=== PATIENT | female | born 1970 | race Caucasian/White ===

== ENCOUNTER → 2019-11-03 | Outpatient (CLI) | payer OTHER, SELFPAY ==
[2019-11-03 09:05] VITALS: BMI 31.8
[2019-11-09 15:12] LABS: HPV APTIMA, High Risk Negative (Negative)
== END | disposition home or self-care (01) ==
LOC: LABSPEC 13:53
PROVIDERS: PCP Family Medicine; Referring Provider Nurse Practitioner Women's Health; Visit Provider Nurse Practitioner Women's Health
DX: Z12.4 Encounter for screening for malignant neoplasm of cervix (principal)
CPT/HCPCS: 87624; 88175; G0145

== ENCOUNTER 2020-03-07 10:00 | Outpatient (RCR) | payer OTHER, SELFPAY ==
[2019-05-25 10:43] VITALS: BMI 31.8
--- NOTE | 2019-09-29 12:39 | HP.OTEVAL ---
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 Date of Evaluation: 09/29/19 Occupational Therapist: Lauren Guerra, OTR/Shelly, CHT - Subjective This 49 year old female was seen for OT eval with dx of a right complex tear of triangular fibrocartilage. pt states she had a fall about 5 years ago. MRI showed tears but was unable to get repiared at that time due to wc issues. pt states she underwent sx on July 19 2019. pt currently 10 weeks s/p from TFCC repair. pt states she had pins removed two weeks ago and is here for eval/tx ROM pt states she was instructed in removing orthosis that limited forearm supination a week ago friday and is now allowed to wean from wrist brace. Pt states is limited with all ADls and IADLS. 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 - ADLs Dressing: Bra, Button shirt, Pants Fasteners: Tie shoes, Buttons, Zippers, Belt Eating: Use silverware, Cut food, Drink from glass Bathing: Wash hair, Squeeze shampoo bottle Toileting: Manage clothing Grooming: Trim nails, Squeeze toothpaste on, [place] teeth - Pain Right wrist 2 Pain Intensity Range: 1, 5 - ROM Forearm: right pronation 20 supination 10 left WNL Wrist: right 30/15 left 55/50 - Strength Nuclear Physics Professor: right 20# left 55# Lateral Pinch: right 10# left 14# Tripod Pinch: right 8# left 12# Strength Comments: Right hematology technologist/pinch will be tested at later date - Sensation Sensation Comments: denies - Quick DASH-Disab of Arm,Shoulder& Hand Quick DASH Score: 73.3325 - Goals Goal:100% adherence to protocol: Yes Comment: TFCC repair protocol Goal:Daily scar massage when approriate: Yes Goal:ROM equal to unaffected hand: Yes Goal:Nuclear Physics Professor/Pinch strength at least 75% of unaffected hand: Yes Goal:No pain with affected hand use: Yes Goal:Full use of affected hand in daily activities including: Yes - Rehabilitation General Assessment: Pt currently 10 weeks s/p from TFCC repair with pinning. pins removed 1 week ago. pt demo with limited right wrist ROM limited forearm sup/pron and weak. pt limited with ADLs and IADls at this time and would benefit from skilled OT services 2x week for 8 weeks to assist pt in returning to her PLOF. Today therapist ed. pt on wrist and forearm ROM, scar mtg and edema contorl. pt demo understanding and agree to POC. Rehabilitation Potential: Good - Anticipated Interventions A/AAROM/PROM, Strengthening, Edema Control, Scar Care, Triggerpoint Release, Desensitization, Sensory Retraining, Modalities, Orthoses, Joint Protection/Energy Conservation, Ergonomic Education, Fine Motor Coord/Segundo, ADL Training, Education re assistive Equipment - Visit Plan Frequency: 2x /Week Duration: 2 Months TEXT: Thank you for the opportunity to evaluate your patient. For Medicare and Medicare HMO plans, please review the plan of care and approve it. It will need to be FAXED BACK to us at [phone] for Medicare purposes. Please let me know if there are questions or concerns regarding this plan of care. Physician Signature: Date:
--- NOTE | 2019-10-27 13:37 | OTREVAL_ITS ---
ELEANOR GARRISON, It has been my pleasure to treat CAROLINE CUNNINGHAM over the last 9 visits for right complex tear of TFCC with repair. Please see the progress note below for an update on the occupational therapy plan of care! Subjective: pt arrives states he is doing fine- feels like she is getting stronger but continues to struggle with ROM. this limits her IND with IADLs and ADLs. pt continues to have a popping sensation with ROM of forearm supination and pronation. Objective/Function: right wrist ROM 55/40. supination 45* with a pop when transition to pronation - please asses. right visual education director strength 30# Plan Frequency: 2x /Week Duration: 4 Weeks Plan: cont to work AROM. isometrics to limit popping with forearm supination/pronation Goals - Goals Patient Goals: Regain Mobility, Regain Strength, Improve Fine Motor Skills, Use Hand/Wrist/Arm Normally Again Goal:100% adherence to protocol: Yes Goal:Daily scar massage when approriate: Yes Goal:ROM equal to unaffected hand: Yes Goal:Dynamic Etching Processor/Pinch strength at least 75% of unaffected hand: Yes Goal:No pain with affected hand use: Yes Goal:Full use of affected hand in daily activities including: Yes Anticipated Interventions Anticipated Interventions: A/AAROM/PROM, Strengthening, Edema Control, Scar Care, Triggerpoint Release, Desensitization, Sensory Retraining, Modalities, Orthoses, Joint Protection/Energy Conservation, Ergonomic Education, Fine Motor Coord/Segundo, ADL Training, Education re assistive Equipment Please do not hesitate to contact me at [phone] by phone or if you have questions or concerns regarding this new plan of care! Sincerely, Lauren Guerra, OTR/L, CHT
--- NOTE | 2019-11-24 09:34 | HP.OTREVAL ---
ELEANOR GARRISON, It has been my pleasure to treat CAROLINE CUNNINGHAM over the last 4 visits for right complex tear of TFCC with repair. Please see the progress note below for an update on the occupational therapy plan of care! Subjective: pt arrives to session states some sorness througout wrist - less pop with forearm sup/pron. Objective/Function: right community relations specialist strength 40# left is 60#. right tripod pinch 14#. right lateral pinch 15#. right wrist ROM 60/40. UD 15. RD 20. pt making gains with strength and increasing use of her right hand with ADLs and IADLs pt would still benefit from skilled OT services to improve her functional strength Plan Frequency: 2x /Week Duration: 4 Weeks Plan: cont with PRE. gym eq. BTE. and isometric sup/pron Goals - Goals Patient Goals: Regain Mobility, Regain Strength, Improve Fine Motor Skills, Use Hand/Wrist/Arm Normally Again Goal:100% adherence to protocol: Yes Goal:Daily scar massage when approriate: Yes Goal:ROM equal to unaffected hand: Yes Goal:Furnace Cooler/Pinch strength at least 75% of unaffected hand: Yes Goal:No pain with affected hand use: Yes Goal:Full use of affected hand in daily activities including: Yes Anticipated Interventions Anticipated Interventions: A/AAROM/PROM, Strengthening, Edema Control, Scar Care, Triggerpoint Release, Desensitization, Sensory Retraining, Modalities, Orthoses, Joint Protection/Energy Conservation, Ergonomic Education, Fine Motor Coord/Segundo, ADL Training, Education re assistive Equipment Please do not hesitate to contact me at [phone] by phone or if you have questions or concerns regarding this new plan of care! Sincerely, Lauren Guerra, OTR/L, CHT
--- NOTE | 2020-02-08 11:12 | HP.OTREVAL ---
ELEANOR GARRISON, It has been my pleasure to treat CAROLINE CUNNINGHAM over the last 8 visits for right complex tear of TFCC with repair. Please see the progress note below for an update on the occupational therapy plan of care! Subjective: pt arrives to session with new C9 for continue therapy - pt states she has had difficulty with paper work and approval notification - pt states she continues to have pain- states she had cortisone shot in left wrist 2019. pt states advised with wear wrist brace. pt states she has been removing wrist brace to shower only. Objective/Function: R self storage manager strength 40#. R tripod 10#. R Lat 8#. no change since Nov. R wrist ROM 35/50 this is a decrease in ROM from 36/60. right wrist RD 25 UD 25 WNL. pt continues to have a pop with forearm supination- Will return to for italia dunaway to repair will know Feb.21 Plan Frequency: 2x /Week Duration: 4 Weeks Plan: therapist will challenged pt with wrist stabilization ex. will initiate PRE on gym eq. (mid row, lat pull down, chest press and shoulder press) to increase pts functional strength- strengthen in pain free or limited wrist ROM as pt tolerates. If pt has increase in pain POC will change. Goals - Goals Patient Goals: Regain Mobility, Regain Strength, Improve Fine Motor Skills, Use Hand/Wrist/Arm Normally Again Goal:100% adherence to protocol: Yes Goal:Daily scar massage when approriate: Yes Goal:ROM equal to unaffected hand: Yes Goal:Community Living Specialist/Pinch strength at least 75% of unaffected hand: Yes Goal:No pain with affected hand use: Yes Goal:Full use of affected hand in daily activities including: Yes Anticipated Interventions Anticipated Interventions: A/AAROM/PROM, Strengthening, Edema Control, Scar Care, Triggerpoint Release, Desensitization, Sensory Retraining, Modalities, Orthoses, Joint Protection/Energy Conservation, Ergonomic Education, Fine Motor Coord/Segundo, ADL Training, Education re assistive Equipment Please do not hesitate to contact me at [phone] by phone or if you have questions or concerns regarding this new plan of care! Sincerely, Lauren Guerra, OTR/L, CHT
--- NOTE | 2020-03-07 10:30 | HP.OTDCSUM_ITS ---
It has been my pleasure to treat CAROLINE CUNNINGHAM under orders from ELEANOR GARRISON, for the diagnosis of right complex tear of TFCC with repair for a total of 8 visit(s). Please see the following information for a summary of their discharge status. % Improvement: 60 Objective/Function: R registered nurse first assistant strength 40#. R tripod 10#. R Lat 8#. no change since Nov. R wrist ROM 60/45. right forearm sup 65 with discomfort. right wrist RD20 (with discomfort) UD 20 WFL. pt continues to have a pop with forearm supination- Will have sx on . pt to cont with HEP until she has her sx. ice/heat PRN Patient Goals: Regain Mobility, Regain Strength, Improve Fine Motor Skills, Use Hand/Wrist/Arm Normally Again Goal:100% adherence to protocol: Yes Goal:Daily scar massage when approriate: Yes Goal:ROM equal to unaffected hand: Yes Goal:Marine Engine Machinist Apprentice/Pinch strength at least 75% of unaffected hand: Yes Goal:No pain with affected hand use: Yes Goal:Full use of affected hand in daily activities including: Yes Plan: D/C with HEP Discharge Comments: pt d/C with sx scheduled . If there are questions or concerns regarding this patient's occupational therapy, please fell free to call me at [phone]. Thank you for the referral of this patient. Sincerely, Lauren Guerra, OTR/L, CHT
== END 2020-03-07 10:36 | disposition home or self-care (01) ==
LOC: OT 10:00
PROVIDERS: PCP Family Medicine
DX: S63.591D Other specified sprain of right wrist, subsequent encounter (principal)
CPT/HCPCS: 97035; 97110; 97140; 97166; 97530

== ENCOUNTER 2021-05-23 08:30 | Outpatient (RCR) | payer OTHER, SELFPAY ==
--- NOTE | 2021-02-23 08:44 | HP.OTEVAL_ITS ---
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 Date of Evaluation: 02/21/21 Occupational Therapist: Lauren Guerra, OTR/Shelly, CHT - Subjective This 50 year old female was seen for OT eval dx of Ulnar neuropathy at elbow -. pt underwent further wrist TFCC in 2020 and August 2020 for right elbow ulnar nerve transposition. pt has been through acute OT services and arrives to this facility for work conditioning right wrist/hand 3-4x week for 4 weeks to return pt to her PLOF. pt states she had lifting restrictions increased from 5# to 10#. pt states she is currently unemployed and when looking for jobs a min. requirement is about 50#. This therapist called Dr. Martínez's office and clarified any restrictions - NO Restrictions with work conditioning - Pain right wrist 1 Pain Intensity Range: 6, 7 - ROM Elbow: right/Left WNL Forearm: supination right 55 left 70 pronation r/l WNL Wrist: right 55/50 left 60/60 ROM Comments: right RD 10 RD 15. left UD 20 UD 15 - Strength Shoulder: right 4/5 left 4+/5 Elbow: right 4/5 left 4+/5 Forearm: right 4/5 left 4+/5 Wrist: right 4/5 left 4+/5 World Language Teacher: right 45# left 45# Lateral Pinch: right 10# left 12# Tripod Pinch: right 10# left 10# Tip-to-Tip Pinch: right 6# left 4# Strength Comments: pt demo with UB weakness of wrist/hand - Sensation Thumb: right 2.83 left 2.83 Index: right 2.83 left 2.83 Middle: right 2.83 left 2.83 Ring: right 2.83 left 2.83 Little: right 2.83 left 2.83 - Quick DASH-Disab of Arm,Shoulder& Hand Quick DASH Score: 47.7250 - Goals Goal:: pt will demo increase in right UE wrist/forearm MMT 5/5 to increase pts ind. with ADLs and IADLs by d/c. pt will demo a increase in right lighting engineering technician by 20# and lateral and tripod pinch by 4# to increase pts ind. with ADLs and IADLs by d/c. pt will demo the ability to lift from floor, knee and waist level with good lifting mechanics 95% of the time with wt over 25#. Goal:: pt will report no pain greater than1/10 with use of right UE with ADLs and IADls by d/c Goal:: pt will demo understanding of scar mtg by end of 3rd session to prevent scar adhesions by d.c - Rehabilitation General Assessment: pt demo with UE weakness and pain limiting her return to ADLs and work tasks. pt would benefit from skilled OT services for work conditioning 3-4x week for 4 weeks to increase pts strength/endurance to return to her PLOF. Rehabilitation Potential: Good - Anticipated Interventions Strengthening, Ergonomic Education, Education re Diagnosis, Other Other Interventions: work conditioning - Visit Plan Frequency: 3-4x week Duration: 4 Weeks General Plan: work conditioning. simulated work tasks. lift up to 50#. gym eq. wrist stabilization ex. TEXT: Thank you for the opportunity to evaluate your patient. For Medicare and Medicare HMO plans, please review the plan of care and approve it. It will need to be FAXED BACK to us at [phone] for Medicare purposes. Please let me know if there are questions or concerns regarding this plan of care. Physician Signature: Date:
--- NOTE | 2021-03-19 11:51 | HP.OTREVAL ---
ELEANOR GARRISON, It has been my pleasure to treat CAROLINE CUNNINGHAM over the last 12 visits for ulnar neuropathy at elbow of right UE. Please see the progress note below for an update on the occupational therapy plan of care! Subjective: pt states she continues to have difficulty with lifting heavy weights- with her prior to injury ex routine- due to pain-. pt states she can do most daily tasks but-pt states she still struggles with the ability to open jars, and opening packages (pain limits pts). pt continues to not be able to return to her leisure activities, as swimming, croquet, cheerleading coach tennis, foosball and other activities since her surgeries. 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 Objective/Function: pt has been engaged in work conditioning for 12 sessions for right UE/wrist- consistently for last 4 weeks. pts tolerated increase in wts and sets with ADls. right trackless trolley driver strength 60# increase from 45#. right lateral pinch 14# increase from 10#. right tripod pinch 10# no change. right tip pinch 8# increase from 6#. right wrist 60/ 50. right forearm supination 70* increase from 55*. RD 10. UD 20. pt demo functional ROM - pt continues to have some pain in wrist depending on position of forearm/wrist and resistance. pt tolerated work conditioning well- some of the exercise included. shoulder IR/ER at 5# resistance. Biceps curls at 15# resistance. triceps at 25# on mateo with straight bar. lat pull down 40# resistance. mid row 40# resistance. chest press at 37.5# resistance. shoulder press 36# res of resistance. wrist curls with 3# resistance. therapy also use BTE ([employer] equipment) machine with different attachments of trackless trolley driver/ pinch tool 162, simulated jar lid open tool 302, tool 504 for wrist flex/ext. along with supination/pronation with tool 602-. pt has handout on reps of wts- from our gym. pt did perform cardio exercises ind. in our building- with distant supervision. pt did put good effort into her exercises and if her wrist was bothersome we would change hand/wrist/forearm positioning for pt to be successful with the exercises. pt currently is unemployed and we did not have wt. lifting requirement-. pt did simulated lifting with 25# from different heights- with good lifting mechanics. simulated work task as sled push/pull 45# and 35#. this was performed as simulated moving gurney- simulated placing a number of wts 2#, 3# 5# and 6# from different heights. - use of 2.2 weighted ball for supination/pronation to gain increase in functional strength to return to her PLOF or obtain employment. Plan Visits in this POC: pt returns to DR. Chang apporval date for work conditioning 03/19/21 Plan: pt returns to 03/20/21 for follow up after completing work conditioning. Goals - Goals Patient Goals: Regain Strength, Use Hand/Wrist/Arm Normally Again Goal:: pt will demo increase in right UE wrist/forearm MMT 5/5 to increase pts ind. with ADLs and IADLs by d/c. pt will demo a increase in right trackless trolley driver by 20# and lateral and tripod pinch by 4# to increase pts ind. with ADLs and IADLs by d/c. pt will demo the ability to lift from floor, knee and waist level with good lifting mechanics 95% of the time with wt over 25#. Goal:: pt will report no pain greater than1/10 with use of right UE with ADLs and IADls by d/c Goal:: pt will demo understanding of scar mtg by end of 3rd session to prevent scar adhesions by d.c Anticipated Interventions Anticipated Interventions: Strengthening, Ergonomic Education, Education re Diagnosis, Other Other Interventions: work conditioning Please do not hesitate to contact me at [phone] by phone or if you have questions or concerns regarding this new plan of care! Sincerely, Lauren Guerra, OTR/L, CHT
--- NOTE | 2021-05-25 08:26 | HP.OTFCE_ITS ---
Floor (Occasional 1-33% of Day): 40 lbs Floor (Frequent 34-66% of Day): 20 lbs Floor (Constant 67-100% of Day): NA Floor PDL: Light-Medium Knee (Occasional 1-33% of Day): 40 lbs Knee (Frequent 34-66% of Day): 20 lbs Knee (Constant 67-100% of Day): NA Knee PDL: Light-Medium Waist (Occasional 1-33% of Day): 20 lbs Waist (Frequent 34-66% of Day): 10 lbs Waist (Constant 67-100% of Day): NA Waist PDL: Light Shoulder (Occasional 1-33% of Day): 10 Shoulder (Frequent 34-66% of Day): 5 Shoulder (Constant 67-100% of Day): NA Shoulder PDL: Sedentary Overhead (Occasional 1-33% of Day): NA Overhead (Frequent 34-66% of Day): NA Overhead (Constant 67-100% of Day): NA Overhead PDL: No Ability Bending: Frequent Ability (34-66% of day) Comments: Pt. took a standing break after 10 reps regular pace Squatting: Occasional Ability (1-33% of day) Comments: Both knees popped during 3x, 10x, 10x F Kneeling: Occasional Ability (1-33% of day) Comments: Used distal support for 3x,10x,&10xF. B knees & B ankles popped pain incr Reaching out: Frequent Ability (34-66% of day) Comments: No difficulty Reaching up: Frequent Ability (34-66% of day) Comments: B shoulders popped Sitting: Frequent Ability (34-66% of day) Comments: no c/o pain with sitting for 30 minutes. Walking: Frequent Ability (34-66% of day) Comments: No c/o pain with walking during 6MWT Standing: Frequent Ability (34-66% of day) Comments: No c/o pain with standing 30 min Duration Sedentary Sedentary Light Light Light Medium Medium Medium Heavy Very Heavy Heavy Occasional (0-33% of day) Frequent (34-66% of day) Constant (67-100% of day) 10 # Negligible Negligible 15 # 8 # Negligible 20 # 10# Negli. 35 # 18 # 7 # 50 # 25 # 10 # 75 # 100 # >100 # 38 # 50 # >50 # 15 # 20 # >20 # Weight:: 88.859 kg Hand Dominance: Right hand dominant BP (Medication Use/Usual Values per pt report): Pt. reports she does not take meds for her R UE. Medical History Including Restrictions: Pt. has a history of ulnar neuropathy at elbow. Surgical history of right elbow ulnar nerve release. She had a wrist TFCC in 2020 and August 2020 for right elbow ulnar nerve transposition. She has had acute OT services through [facility] and at [facility]. She is currently participating in OT services for work conditioning for her right wrist/hand. Dr. Martínez's office reported that she has NO Restrictions with work conditioning. Per pt. report she has had 3 surgeries at her right wrist and 1 surgery at her right elbow (August 2020). Diagnoses: Per therapy order: Arthritis of right wrist. Ulnar neuropathy at elbow. wrist TFCC in 2020 and August 2020 for right elbow ulnar nerve transposition. Symptoms: Pt. has increased pain in R wrist with activity use during IADL's. Pt. reported that heat assists with decreasing and relieving pain in wrist. Pain: Pt. reported no pain (0/10) at start of FCE. Pt. reported that heat assists with decreasing and relieving pain in wrist. At end of FCE pt. reported pain level 2/10. Per the Reed pain assessment: 63/78, this indicates that the pt. is having greater perceived pain than most. Subcategory scores are: ? Sensory Score = 35 points. ? Affective Score = 11 points. ? Evaluative Score = 4 points. ? Miscellaneous Score = 13 points. ? Pain Rating Index (BRIANA) = 63 points. ? Present Pain Intensity (PPI) = 2 points. ? Pain Score Interpretation: The higher the score, the greater the perceived pain. 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 Activities performed at work include: EKGs, blood draws, computer work, answering phones, stocking pt. rooms. She reports job demands of: sitting 15 min max, changes positions frequently between sitting and standing, standing position max time 10-15 minutes, the heaviest weight she is required to lift is 100#. Behavioral: Pt. stated she was feeling nervous about test at start of FCE, tearful. Resolved herself within 5 minutes. Pt. put forth good effort during FCE. She was pleasant and cooperative. ADLS: Pt. reporting that she is independent with basic ADL's. 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 She reports difficulty with pushing a grocery cart when grocery shopping, difficulty with meal preparation, and driving. Pt. reporting that she compensates by using a pillow for her RUE when driving. Physical Examination: At start of FCE BP 161/109, HR 72, O2 98% at end of FCE BP 138/89, HR 68, O2 97%. Pt. has good posture with sitting and standing. The purpose of this FCE on 05-23-[address] Martínez. This exam will assess pt's physical abilities. ROM: Bilateral upper extremities have normal active range of motion (ROM). Pt. is limited on her right wrist flexion. Right wrist has 30 degrees of flexion. Her Left wrist has 60 degrees of flexion. Bilateral lower extremities have normal range of motion, no observed deficits. Strength: Using the Mini FET to assess L shoulder strength 16#, bicep flexion 16.2#. Through clinical observation R shoulder/bicep strength WFL, was not measured by mini FET secondary to having increased pain from unilateral carrying task. R hip flexion 29.7#, R hamstrings 15.5#, L hip flexion 28.6#, L hamstrings 26.1# Right Customer Quality Specialist Strength Average: 47.70 Right Customer Quality Specialist Strength Percentile: 68th percentile Left Customer Quality Specialist Strength Average: 62.20 Left Customer Quality Specialist Strength Percentile: 75th percentile Right Lateral Pinch Average: 11.33 Right Lateral Pinch Percentile: below 10th percentile Left Lateral Pinch Average: 14.00 Left Lateral Pinch Percentile: 10th percentile Right Tripod Pinch Average: 12.33 Right Tripod Pinch Percentile: below 10th percentile Left Tripod Pinch Average: 11.66 Left Tripod Pinch Percentile: below 10th percentile Comments: 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 See above chart. Sensation: Patient reported no deficits with sensation in hands or fingers. No numbness or tingling. Fine Motor: Fine motor was assess using the 9-hole peg test. With her right hand she completed in 25.50 seconds (below 10th percentile) and with her left hand she scored 21.71 seconds (within 50th percentile). Balance: Balance assessed by Forward reach test (FRT) and single leg stance. During the FRT 1st trial 13 inches, 2nd trial 13 inches, 3rd trial 13.25 inches. A score of 6 inches or less indicates a high fall risk. Single leg stance (hands on hips) RLE 1 minute & 26 seconds, LLE 1 minute & 20 seconds. No pain, ankles are sore Bending: Pt. completed bending and touching the ground 3 times, then 10 times with a rest break at the end, and then 10 times fast. pt can bend forward on frequent ability Squatting: Pt. completed squatting 3 times (3x), during squat her right knee popped, during 10 times (10x) her left knee popped, during the 10 times fast (10xF) her right knee popped. pt can bend forward on occasional ability Kneeling: Pt. completed kneeling with 1 knee, during the 3 times she alternated by knees to the ground and used distal support, at end her left knee popped, during the 10 times she had both ankles popped, used distal support of table, at the end of task both knees were painful and she rated them at a pain level 1. Pt. completed kneeling 10 times fast with distal support, pain level is a 2 in both knees. pt can kneel on a occasional ability Reaching out/up: While standing pt. was able to reach out 3 times, 10 times and 10 times fast without difficulty. While standing pt. was able to reach up 3 times, 10 times and 10 times fast without difficulty. pt can reach out/up on a frequent ability Walking: Walking assessed by Timed up and go (TUG) assessment. From a seated position, individual stands, walks 3m, turns 180?, walks 3m back to chair and sits down with back resting against backrest. TUG results 1st trial- 9 seconds,2nd trial- 8.50 seconds, and 3rd trial 8.41 seconds. Less than 10 seconds is within normal limits. Standing: Pt. tolerated standing 20-30 minutes without distal support. No distress by pt. Pt can stand on a frequent ability Sitting: Pt. tolerated sitting in chair for 20-30 minutes at a time without having to readjust for comfort once positioned. pt can sit on a frequent ability Climbing Stairs: Assessed stair climbing using the Step evaluation of performance on stairs (STEPS). There were 12 steps and bilateral hand rails. Pt. used handrail on Left side ascending the stairs and then used both handrails descending the stairs. Pt. had a faster pace going up, step over step than she did descending step over step. Pt. scored an 8/10 for ascending stairs. Pt. scored a 5/10 descending stairs. Floor Lift: Pt. demonstrated ability to lift 40#box from floor to knee height using bilateral hands, using correct body mechanics. Knee Lift: Pt. demonstrated ability to lift 40#box from knee height to waist level using bilateral hands using correct body mechanics. Waist Lift: Pt. demonstrated ability to lift 20# box from waist level to shoulder level using bilateral hands using correct body mechanics. Pt. stating she had pain going through ulnar side of wrist. Shoulder Lift: Pt. demonstrated ability to lift 10# box from waist level shoulder height using bilateral hands using correct body mechanics. This appeared to be difficult. Overhead Lift: Did not assess secondary to difficulty with wrist flexion and increasing pain through R wrist. Carrying: Pt. demonstrated ability to carry 20# bilaterally 50 feet, then carried 10# unilaterally 50 feet with R hand. At the end of unilateral carrying pt. had increased wrist pain to level 2/10. S/OT provided moist heat. Comments: Pt. 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 She was in the ER when the injury occurred and was immediately seen by medical research tech, her supervisor assembly and 2 nurses observed fall. Doctor seen pt. she had an xray. Since nothing was broken, pt. returned to work, 4 years later an orthopedic doctor told her she had torn ligaments and tendons, and then had her first surgery 5 years after injury. Pt. had an MRI and xrays. Through observations pt. had increased difficulty the higher up the pt. had to lift. Pt. requested to complete unilateral carrying with 10# against S/OT suggestion. Pt. had increased pain (2/10) when finished and S/OT provided moist heat to R wrist/hand and positioned on tabletop for comfort. Assessment was directly supervised and doc. reviewed and approved by Lauren LEIVA/Shelyl,MICHIT
--- NOTE | 2021-05-25 08:26 | HP.OTFCE.D ---
FCE D/C Summary - Discharge CAROLINE CUNNINGHAM was seen for a one time visit for an FCE on 05/23/21 and is discharged.
== END 2021-05-23 19:00 | disposition home or self-care (01) ==
LOC: OT 08:30
PROVIDERS: PCP Family Medicine
DX: M19.031 Primary osteoarthritis, right wrist (principal); G56.21 Lesion of ulnar nerve, right upper limb
CPT/HCPCS: 97110; 97140; 97166; 97168; 97537; 97750

== ENCOUNTER → 2021-11-07 | Outpatient (CLI) | payer OTHER, SELFPAY | END | disposition home or self-care (01) | PROVIDERS: PCP Family Medicine; Visit Provider Nurse Practitioner Women's Health | DX: N39.0 Urinary tract infection, site not specified (principal) | CPT/HCPCS: 87086; 87088; 87186 ==

== ENCOUNTER → 2021-11-19 | Outpatient (CLI) | payer OTHER, SELFPAY ==
--- NOTE | 2021-11-19 | EMB_PTH ---
PATIENT: CAROLINE CUNNINGHAM LOC: [facility] U#:[id number] AGE/SX: 51/F ROOM: RE11/19/[address]: CHI Thompson : 1970 BED: DIS: 11/19/2021 SPEC #: [id number] RECD: 11/20/21 08:34 STATUS: JASSI LANRE #: [id number] AMANDEEP: 11/19/21 00:[address]: Elba Daley NP DEPT: SURGICAL PATHOLOGY RECD BY: Luigi Shaw ENTERED: 11/20/21 08:34 SP TYPE: ENDOM BX/C KEDAR DR: Dr. Gino Pineda MD Tissues: Endometrium, NOS Procedures: Surgery Specimen Level IV HEADER OPERATION: Endometrial biopsy PRE-OP DIAGNOSIS: Abnormal uterine bleeding TISSUE SUBMITTED: Endometrial lining MICROSCOPIC DIAGNOSIS Endometrial biopsy: Mildly disordered proliferative endometrium. SJ:dieter 11/21/2021 MICROSCOPIC DESCRIPTION Slides are reviewed. GROSS DESCRIPTION Received is one container labeled with the patient's name and not further designated. The specimen consists of multiple irregular fragments of pink soft tissue that in aggregate measure 3 x 1.5 x 0.2 cm. The specimen is totally submitted in one cassette. / SJ:dieter 11/20/2021 TC:3 CPT: 80971
== END | disposition home or self-care (01) ==
LOC: LABSPEC 15:33
PROVIDERS: PCP Family Medicine; Referring Provider Nurse Practitioner Women's Health; Visit Provider Nurse Practitioner Women's Health
DX: N93.9 Abnormal uterine and vaginal bleeding, unspecified (principal)
CPT/HCPCS: 88305

== ENCOUNTER 2023-01-07 14:00 | Outpatient (RCR) | payer OTHER, SELFPAY ==
--- NOTE | 2022-07-31 07:29 | HP.OTEVAL_ITS ---
Patient's Visit Information CAROLINE CUNNINGHAM is a 52 year old F, referred to Occupational Therapy by ELEANOR GARRISON, with a diagnosis of left SL tear. Date of Evaluation: 07/29/22 Occupational Therapist: Lauren Guerra, CALI/Shelly, CHT - Subjective This 52 year old female was seen for OT eval with dx of tear of scapholunate ligament DOI 06/04/2014. DOS April 29 2022. pt arrives s/p 13 weeks from left scapholunate reconstruction using extensor carpi radialis longus, with left wrist arthroscopy TFCC debridement. pt states she is doing fine. Has HEP of dart throwers motion, scar mtg and increase use as tolerated. pt states ROM is limited as well as her strength but she is ready to continue therapy to return to a PLOF without pain. - Pain left wrist 6 Pain Intensity Range: 6 - ROM Forearm: right supination 60 left 65 Wrist: right 65/65 left 40/30 ROM Comments: left UD 15 RD 10. 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 pt demo with limited left wrist ROM and weakness limiting pt with ADls and IADLs. pt states pain limits her with all ADLs and IADLs. pt would benefit from skilled OT services 2x week for 8 weeks to increase pts ROM, wrist mobility and strength to return to her PLOF without pain. Pt demo understanding and agree to POC. Rehabilitation Potential: Good - Anticipated Interventions A/AAROM/PROM, Strengthening, Edema Control, Scar Care, Triggerpoint Release, Desensitization, Modalities, Orthoses, Joint Protection/Energy Conservation, Ergonomic Education, Education re assistive Equipment, Education re Diagnosis - Visit Plan Frequency: 2x /Week Duration: 2 Months TEXT: Thank you for the opportunity to evaluate your patient. For Medicare and Medicare HMO plans, please review the plan of care and approve it. It will need to be FAXED BACK to us at [phone] for Medicare purposes. Please let me know if there are questions or concerns regarding this plan of care. Physician Signature: Date:
--- NOTE | 2022-09-30 08:59 | OTREVAL_ITS ---
Re-Evaluation Intro: ELEANOR GARRISON, It has been my pleasure to treat CAROLINE CUNNINGHAM over the last 16 visits for left SL tear. Please see the progress note below for an update on the occupational therapy plan of care! Subjective Subjective: Pt arrives 20 weeks 5 day from left scapholunate reconstruction using ECRL with left wrist arthroscopy TFCC debridement. Pt main concern in the continued pain at the base of her right thumb. Pt continues to have pain up to 6/10 depending on what activities she is performing. Pt would like to return back to work in a capacity similar to what she was prior to surgery. Objective Objective/Function: Initial Analysis Director strength right 55# left 30# Current Right 50# Left 55# initial Lateral Strength right 14# left 12# Current R 18# L15# initial Tripod Strength right 14# left 12# Current R17# L 12# initial Wrist ROM left 40/30 current right 65/65 left 45/41 Plan Plan Frequency: 2x /Week Duration: 2 Months Visits in this POC: 2 months (2x week) Plan: Pt arrives 20 weeks 5 day from left scapholunate reconstruction using ECRL with left wrist arthroscopy TFCC debridement. Pt has been seen for 16 visits of skilled occupational therapy. These interventions included bilateral shoulder and hand strengthening, ergonomic techniques, modalities, and trigger point interventions. Pt main concern in the continued pain at the base of her right thumb when performing functional tasks ~20% of the time. Pt continues to have pain up to 6/10 depending on what activities she is performing. Pt would like to return back to work in a capacity similar to what she was prior to surgery. Pt verbalizes understanding of techniques. Pt may benefit from further skilled OT sessions. Goals Goals Patient Goals: Regain Mobility, Improve Fine Motor Skills, Use Hand/Wrist/Arm Normally Again and Be More Independent in ADLS Goal:100% adherence to protocol: Yes Goal:ROM equal to unaffected hand: Yes Goal:Analysis Director/Pinch strength at least 75% of unaffected hand: Yes Goal:No pain with affected hand use: Yes Goal:Full use of affected hand in daily activities including work: Yes Anticipated Interventions Anticipated Interventions Anticipated Interventions: A/AAROM/PROM, Strengthening, Edema Control, Scar Care, Triggerpoint Release, Desensitization, Modalities, Orthoses, Joint Protection/Energy Conservation, Ergonomic Education, Education re assistive Equipment and Education re Diagnosis Re-Evaluation Ending Re-evaluation ending: Please do not hesitate to contact me at [phone] by phone or Fax: if you have questions or concerns regarding this new plan of care! Sincerely, Lauren Guerra, OTR/L, CHT
--- NOTE | 2023-01-14 10:16 | HP.FCE ---
Task Lift Floor (Occasional 1-33% of Day): 30# Floor (Frequent 34-66% of Day): 15# Floor (Constant 67-100% of Day): NA Floor PDL: Light Knee (Occasional 1-33% of Day): 30# Knee (Frequent 34-66% of Day): 15# Knee (Constant 67-100% of Day): NA Knee PDL: Light Waist (Occasional 1-33% of Day): 20# Waist (Frequent 34-66% of Day): 10# Waist (Constant 67-100% of Day): NA Waist PDL: Light Shoulder (Occasional 1-33% of Day): 15# Shoulder (Frequent 34-66% of Day): 8# Shoulder (Constant 67-100% of Day): NA Shoulder PDL: Sedentary-Light Overhead (Occasional 1-33% of Day): 10# Overhead (Frequent 34-66% of Day): NA Overhead (Constant 67-100% of Day): NA Overhead PDL: Sedentary Comments: Physical Demand level of Light for lifting at floor- knee- and waist levels Physical Demand level of Sedentary Light for lifting at shoulder level Physical Demand level of Sedentary for lifting at overhead levels. due to left wrist pain pt can not lift on constant ability . pt reports pain present during all lifting tasks. Work Activity/Posture Bending: Frequent Ability (34-66% of day) Squatting: Frequent Ability (34-66% of day) Kneeling: Occasional Ability (1-33% of day) Reaching out: Constant Ability (67-100% of day) Reaching up: Frequent Ability (34-66% of day) Sitting: Frequent Ability (34-66% of day) Walking: Frequent Ability (34-66% of day) Standing: Frequent Ability (34-66% of day) Reference Reference: Duration Sedentary Sedentary Light Light Light Medium Medium Medium Heavy Very Heavy Heavy Occasional (0-33% of day) Frequent (34-66% of day) Constant (67-100% of day) 10 # Negligible Negligible 15 # 8 # Negligible 20 # 10# Negli. 35 # 18 # 7 # 50 # 25 # 10 # 75 # 100 # >100 # 38 # 50 # >50 # 15 # 20 # >20 # Patient Information Height: 1.65 m Weight:: 88 kg Hand Dominance: right Medical History Medical History Including Restrictions: Pt. has a history of ulnar neuropathy at elbow. Surgical history of right elbow ulnar nerve release. She had a wrist TFCC in 2020 and August 2020 for right elbow ulnar nerve transposition. She has had acute OT services through [facility] and at [facility]. She is currently participating in OT services for work conditioning for her right wrist/hand. Dr. Martínez's office reported that she has NO Restrictions with work conditioning. Per pt. report she has had 3 surgeries at her right wrist and 1 surgery at her right elbow (August 2020). 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 after injury MRI July 2014- MRI was not put on workman's comp claim. So pt struggled for years with pain and weakness until MRI was place in WC claim showing tear of TFCC tear. On April 29 2022 pt underwent Scapholunate reconstruction using Extensor Carpi radialis longus- left wrist arthroscopy of TFCC debridement. due to injury at work on 07/04/14. pt underwent OT services to improve ROM strength and use of left UE with ADLs and IADLs. pt states she does wear her neoprene brace to help decrease pain with daily tasks ie cleaning-laundry. pt states she continues to sleep in orthosis brace to protect her wrist at night. States this helps decrease her fear of hurting her wrist during the night. 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 pt states with use of UE with cleaning/scrubbing causes pain 3/10 pt states she will use a left wrist brace at night and during the day with heavier ADLS. 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 Activities performed at work include: EKGs, blood draws, computer work, answering phones, stocking pt. rooms. She reports job demands of: sitting 15 min max, changes positions frequently between sitting and standing, standing position max time 10-15 minutes, the heaviest weight she is required to lift is 100#.pt is unable to work as EMS at this time or ER. Behavioral Behavioral: pt cooperative throughout assessment. ADLS ADLS: Pt. reporting that she is independent with basic ADL's. ( bathing and dressing) She reports that she has difficulty with IADL tasks such as home management Cleaning, sweeping, and Laundry - She reports difficulty with pushing a grocery cart when grocery shopping, difficulty with meal preparation ( cutting, pealing) and driving. pt states even clapping her hands increases pain in wrist. pt states she is managing her symptoms with heat and limits heavy daily tasks. Physical Examination Physical Examination: heart rate 73 ROM: wrist ROM right 55/60 left 40/35 forearm supination right 60 left 65 pt demo all other ROM is WNL Strength: fet2 peak force shoulder flexion right 16# left 14.6# shoulder extension right 29# left 26.3# Biceps right 29# left 29# Triceps right 25# left 23# with left wrist pain Hip flexion right 35# left 29# Quadriceps right 26# 32# Hamstrings right 29# left 33# Right C Java Developer Strength Average: 45.00 Right C Java Developer Strength Percentile: 5% Left C Java Developer Strength Average: 25.00 Left C Java Developer Strength Percentile: .2% Right Lateral Pinch Average: 18.00 Right Lateral Pinch Percentile: >90% Left Lateral Pinch Average: 13.66 Left Lateral Pinch Percentile: 50% Right Tripod Pinch Average: 12.66 Right Tripod Pinch Percentile: 50% Left Tripod Pinch Average: 12.00 Left Tripod Pinch Percentile: 50% Sensation: denies Fine Motor: 9 hole peg testing right 19.56 seconds placing pt at 50% for age Left 17.73 seconds placing pt at 50% for age Balance: functional reach 12.5 normal balance no loss of balance Non Material Handling Activities Bending: pt demo the ability to bend forward 3/3x, 10/10x, 10/10 rapidly pt can bend forward on frequent ability heart rate 91 Squatting: pt demo the ability to squat 3/3x, 10/10x and 10/10x rapidly heart rate 97 Pt can squat on frequent ability Kneeling: pt demo the ability to kneel 3/3x, 10/10x and declined 10x rapidly due to left knee pain heard left knee pop ( pt states hx of knee issues since HS) heart rate 99 pt can kneel on occasional ability Reaching out/up: pt demo the ability to reach up/out 3/3x, 10/10x and 10/10x rapidly heart rate 85 pt can reach out/up on a frequent ability Walking: no deficits with ambulation pt can ambulate on frequent ability Standing: pt demo the ability to stand for 8 min with good balance- pt denies issues with standing tolerance pt can stand on frequent ability Sitting: pt demo the ability to sit for 45 min with no apparent discomfort. pt can sit on frequent ability. Climbing Stairs: pt demo the ability to ascend and descend 10 steps with a reciprocal step pattern with good ability. Dynamic Occasional Lifting Capacity Floor Lift: pt demo the ability to lift 15# +( 15# box) for maximal lift of 30# from floor level with good lifting mechanics. Knee Lift: pt demo the ability to lift 15# +(15# box) for maximal lift of 30# from floor level with good lifting mechanics Waist Lift: pt demo the ability to lift 5# +(15# box) for maximal lift of 20# from waist level with good lifting mechanics Shoulder Lift: pt demo the ability to lift 15# maximally from shoulder level with good lifting mechanics. Overhead Lift: pt demo the ability to lift 10#maximally from overhead level with good lift mechanics. Carrying: pt demo the ability to carry 15# for 25 feet with good ability. Comments: pt demo difficulty with manipulation of box lifts at times- would have to stop task and adjust hand placement to increase comfort with lift activity. pt reports pain 3-4/10 throughout lift portion of assessment. heart rate 91 following assessment pt reports left wrist pain 4/10 with rest pain did decrease to 3/10 pain is limiting factor on pts performance.
--- NOTE | 2023-01-14 10:17 | HP.OTFCE.D ---
FCE D/C Summary Discharge text: CAROLINE CUNNINGHAM was seen for a one time visit for an FCE on 01/07/23 and is discharged.
--- NOTE | 2023-02-18 16:29 | US_ITS ---
INDICATION: AUB EXAMINATION: Ultrasound US Pelvis Non OB Complete With Transvaginal Imaging TECHNIQUE: Transabdominal and transvaginal pelvic ultrasound was performed. Grayscale, spectral waveform, and color flow Doppler evaluation of the adnexa. COMPARISON: FINDINGS: UTERUS: Anteverted. The uterus measures 8.1 x 4.7 x 2.8 cm. Nabothian cyst. The myometrium is heterogeneous with probable 2 fibroids measuring 8 x 9 x 7 mm and 1.5 x 1.2 x 1.0 cm. Nabothian cyst. The endometrial stripe measures 4 mm in AP diameter which is within normal limits. RIGHT OVARY: 1.8 x 2.1 x 0.9 cm. 11 mm cyst. There is normal Doppler present in the right ovary. LEFT OVARY: 2.2 x 1.2 x 1.7 cm. Non-enlarged, normal echogenicity. There is normal Doppler present in the left ovary. FREE FLUID: Mild cul-de-sac fluid. US/Pelvic w/ Transvaginal IMPRESSION: Heterogeneous myometrium with probable fibroids. Nabothian cyst. Small right ovarian cyst. Electronically Signed: Justin Valle DO at 16:11 EST Reading Location ID and State: [facility] / [place] Tel [phone], Service support ,
== END 2023-01-07 19:00 | disposition home or self-care (01) ==
LOC: OT 14:00
PROVIDERS: PCP Family Medicine
DX: S63 Dislocation and sprain of joints and ligaments at wrist and hand level (principal)
CPT/HCPCS: 76830; 76856; 97110; 97140; 97166; 97530; 97750

== ENCOUNTER → 2023-01-30 | Outpatient (CLI) | payer OTHER, SELFPAY ==
[2023-01-30 15:59] LABS: Estradiol 28.1 pg/mL; Follicle Stimulating Hormone 68.3 mIU/mL
== END | disposition home or self-care (01) ==
PROVIDERS: PCP Family Medicine; Referring Provider Nurse Practitioner Women's Health; Visit Provider Nurse Practitioner Women's Health
DX: N95.1 Menopausal and female climacteric states (principal)
CPT/HCPCS: 36415; 82670; 83001

== ENCOUNTER → 2023-02-18 | Outpatient (CLI) | payer OTHER, SELFPAY | END | disposition home or self-care (01) | LOC: US 16:27 | PROVIDERS: PCP Family Medicine; Referring Provider Nurse Practitioner Women's Health; Visit Provider Nurse Practitioner Women's Health | DX: Z00.00 Encounter for general adult medical examination without abnormal findings (principal) | CPT/HCPCS: 76830; 76856 ==

== ENCOUNTER 2024-02-12 10:52 | Emergency (ER) | payer OTHER, SELFPAY ==
[2024-02-12 10:53] VITALS: BP 163/102; PULSE 102; RESP 16; TEMP 37.2; O2SAT 98; BMI 34.0
--- NOTE | 2024-02-12 12:10 | EX.ED.DYSGE1 ---
HPI <CAT Graham - Last Filed: 02/12/24 15:37> History of Present Illness Chief Complaint: Foreign Body Narrative Narrative: Patient presenting today with concerns for foreign body aspiration. She reports that she was eating a pretzel nilo last night and laughed and inhaled a piece of the pretzel, she is not sure if she aspirated or not but she reports that since yesterday evening she has been coughing a productive cough with yellow-colored sputum. She does have a history of asthma and has had increased wheezing. She also endorses body aches. She denies any fevers, chest pain, shortness of breath. PFS <CAT Graham - Last Filed: 02/12/24 15:37> [facility] Medical History Abnormal Pap smear of cervix Chronic migraine Hyperlipidemia Asthma Home Medications ?Medication ?Instructions ?Recorded ?Last Taken ?Type albuterol sulfate 90 mcg/actuation 2 puff inhalation Q6H 09/14/18 Unknown History aerosol inhaler (Ventolin HFA) atorvastatin 20 mg tablet 20 mg PO DAILY 09/14/18 Unknown History rizatriptan 10 mg tablet (Maxalt) 10 mg PO ONCE 09/14/18 Unknown History multivitamin 1 tab PO DAILY 11/06/20 Unknown History norethindrone acetate 5 mg tablet 5 mg PO .COMPLEX #45 tabs 01/08/22 Unknown Rx (Aygestin) prednisone 20 mg tablet 60 mg (3 x 20 mg) PO DAILY #12 02/12/24 Unknown Rx TABLETS Allergy/AdvReac Type Severity Reaction Status Date / Time levofloxacin (From Levaquin) Allergy Mild flare up Verified 02/12/24 10:53 plantar fascitis sulfamethoxazole (From Allergy Mild diarrhea Verified 02/12/24 10:53 Bactrim) sumatriptan (From Imitrex) Allergy Mild SOB, chest Verified 02/12/24 10:53 tightness trimethoprim (From Bactrim) Allergy Mild diarrhea Verified 02/12/24 10:53 Family History Father Myocardial infarction Mother Hypertension Aunt Breast cancer Other Heart disease Surgical History H/O right wrist surgery S/P ectopic Status post colposcopy Social History Smoking Status: Former smoker alcohol intake: current details: occasionally substance use type: does not use caffeine: Yes what type of physical activity do you participate in: walking frequency: 1-2 times per week seatbelt use: always do you feel safe at home: Yes additional social history: -[employer]; [employer] ROS <CAT Graham - Last Filed: 02/12/24 15:37> ROS ED Constitutional Constitutional ED: Denies chills or fever(s) Cardiovascular Cardiovascular: Denies chest pain Respiratory/Chest Respiratory/Chest: Reports cough and wheezing; Denies dyspnea Gastrointestinal Gastrointestinal: Denies abdominal pain, nausea or vomiting Musculoskeletal Musculoskeletal: Reports other Details: body aches Integumentary Denies rash Neurologic Neurologic: Denies weakness EXAM <CAT Graham - Last Filed: 02/12/24 15:37> Physical Exam Const Vital Signs: 02/12/24 10:53 02/12/24 11:28 02/12/24 13:31 Temperature 99 F Temperature Source Temporal Pulse Rate 102 H 106 H Respiratory Rate 16 18 Respiratory Effort Non-Labored Short of Breath Blood Pressure 163/102 H Blood Pressure Mean 122 Pulse Ox 98 95 Oxygen Delivery Method Room Air Positive well nourished, well developed and no apparent distress General Appearance ED: well developed HEENT Reports normocephalic and head/scalp atraumatic Mouth ED: Yes moist mucous membranes normal Eyes PERRL and EOMs intact bilaterally Neck full ROM and supple Chest Wall inspection of chest normal Resp normal respiratory effort and clear to auscultation bilaterally Cardio regular rate and regular rhythm Back/Spine normal ROM and normal to inspection Extremity normal to inspection and full ROM Neuro oriented x3, CN's II-XII intact bilaterally, moves all extremities, no focal motor deficits and no sensory deficits noted Sensorium / Orientation: awake and alert Psych mental status grossly normal and thought process normal Skin no rashes or lesions noted and no wounds <Dr. Jason Melchor DO - Last Filed: 02/12/24 22:20> Physical Exam Const Vital Signs: 02/12/24 10:53 02/12/24 11:28 02/12/24 13:31 Temperature 99 F Temperature Source Temporal Pulse Rate 102 H 106 H Respiratory Rate 16 18 Respiratory Effort Non-Labored Short of Breath Blood Pressure 163/102 H Blood Pressure Mean 122 Pulse Ox 98 95 Oxygen Delivery Method Room Air [facility] <CAT Graham - Last Filed: 02/12/24 15:37> [facility] Narrative Medical decision making narrative: Patient presenting today with a productive cough and wheezing that started yesterday evening after she was eating a pretzel. She thinks she may have aspirated part of the pretzel but is not sure. She does have cold-like symptoms including body aches, the cough, and wheezing. I did offer to test her for COVID, RSV, and influenza but she declined. She otherwise is nontoxic-appearing and in no acute distress. Her O2 saturation is 98% on room air. Chest x-ray obtained and does not show any infiltrate or foreign body. Given she has had increased wheezing with a history of asthma we will give her a prescription for prednisone. Recommended she follow-up with her PCP. She will be discharged home in stable condition. Radiography X-Ray: Read by ED Physician Diagnostic Testing: Clinical Impression(s) from Imaging Studies Chest X-Ray 02/12/24 12:55 IMPRESSION: No radiographic evidence of acute cardiopulmonary disease. Electronically Signed: Chasity Porter MD at 14:03 EST , <Dr. Jason Melchor DO - Last Filed: 02/12/24 22:20> [facility] Narrative Medical decision making narrative: Patient presenting today with a productive cough and wheezing that started yesterday evening after she was eating a pretzel. She thinks she may have aspirated part of the pretzel but is not sure. She does have cold-like symptoms including body aches, the cough, and wheezing. I did offer to test her for COVID, RSV, and influenza but she declined. She otherwise is nontoxic-appearing and in no acute distress. Her O2 saturation is 98% on room air. Chest x-ray obtained and does not show any infiltrate or foreign body. Given she has had increased wheezing with a history of asthma we will give her a prescription for prednisone. Recommended she follow-up with her PCP. She will be discharged home in stable condition. Attending note: I have personally performed a face to face assessment of the patient and have reviewed the EMMA note. I personally made/approved the management plan and take responsibility for the patient management. I performed a substantive portion of the visit including all aspects of the following. My pitts findings include: Increasing coughing since aspiration event with a pretzel yesterday. Wheezing. History of asthma. On exam, nontoxic. Lungs are clear. Pulse ox 90% room air. Two-view chest x-ray to interval myself read by radiology shows no acute process. Reported wheezing she is covered with prednisone with her asthma history. Radiography Diagnostic Testing: Clinical Impression(s) from Imaging Studies Chest X-Ray 02/12/24 12:55 IMPRESSION: No radiographic evidence of acute cardiopulmonary disease. Electronically Signed: Chasity Porter MD at 14:03 EST Reading Location ID and State: [facility] / [place] Tel , Service support , Discharge Plan Triage Chief Complaint: Foreign Body ED Midlevel Provider: Carolin Banuelos ED Provider: Jason Melchor Dx/Rx/DC Orders Clinical Impression: Aspiration into airway, Asthma, Cough Instructions: Asthma Prescriptions: New prednisone 20 mg tablet 60 mg PO DAILY Qty: 12 0RF No Action atorvastatin 20 mg tablet 20 mg PO DAILY albuterol sulfate [Ventolin HFA] 90 mcg/actuation HFA aerosol inhaler 2 puff INHALATION Q6H rizatriptan [Maxalt] 10 mg tablet 10 mg PO ONCE multivitamin Tablet 1 tab PO DAILY norethindrone acetate [Aygestin] 5 mg tablet 5 mg PO .COMPLEX Qty: 45 0RF Rx Instructions: 5 mg PO tid until bleeding stops X 24 hr then bid to finish Rx Primary Care Provider: Gino Pineda Referrals: Gino Pineda MD [Primary Care Provider] - 1 Week Activity Restrictions/Additional Instructions: Chest x-ray negative. You had an aspiration event. Your history of asthma with wheezing. Take steroids as prescribed continue inhaler. Develop worsening respiratory symptoms, return to ED for reevaluation. Otherwise follow-up with your doctor. Print Language: Welsh Disposition Disposition: Home, Self Care Discharge Date/Time: 02/12/24 13:32
--- NOTE | 2024-02-12 12:55 | RAD_ITS ---
INDICATION: cough EXAMINATION/TECHNIQUE: X-RAY - XR Chest 2 Views COMPARISON: No relevant prior comparison study available FINDINGS: LINES/DEVICES: None. LUNGS: No consolidation, edema or effusion. No pneumothorax. MEDIASTINUM AND CARDIOVASCULAR STRUCTURES: Cardiac silhouette not enlarged. Central airways and mediastinal contour are unremarkable. BONES AND SOFT TISSUES: Unremarkable. RAD/Chest PA and Lateral IMPRESSION: No radiographic evidence of acute cardiopulmonary disease. Electronically Signed: Chasity Porter MD at 14:03 EST ,
[2024-02-12] MEDS: predniSONE 20 MG Tablet 60 MG PO (13:29)
[2024-02-12 13:31] VITALS: PULSE 106; RESP 18; O2SAT 95
== END 2024-02-12 13:32 | disposition home or self-care (01) ==
PROVIDERS: Emergency Provider Emergency Medicine; PCP Family Medicine; Visit Provider Emergency Medicine
DX: T17.928A Food in respiratory tract, part unspecified causing other injury, initial encounter (principal); Z87.891 Personal history of nicotine dependence; E78.5 Hyperlipidemia, unspecified; J45.909 Unspecified asthma, uncomplicated; R05.9 Cough, unspecified; W44.F3XA Food entering into or through a natural orifice, initial encounter
CPT/HCPCS: 71046; 99282